=== PATIENT | female | born 1995 | race Caucasian/White ===

== ENCOUNTER 2017-02-01 10:14 | Emergency (ER) | payer BC ==
[2017-02-01 10:19] VITALS: BP 108/76; PULSE 77; RESP 16; TEMP 98.1; O2SAT 98
[2017-02-01] MEDS ORDERED: RABIES VACC, HUMAN DIPLOID/PF 2.5 UNIT VIAL (RABAVERT) IM ONE (10:34)
--- NOTE | 2017-02-01 10:49 | EDPHY ---
H & P Smoking Status: Never smoked Time Seen by Provider: 02/01/17 10:35 HPI/ROS: CHIEF COMPLAINT: Here for rabies vaccine #4 HISTORY OF PRESENT ILLNESS: 21-year-old immunocompetent female with no prior history of rabies vaccinations states that 3 weeks ago while she was in [place] a dog bit her right hand, unprovoked. Did not break the skin however the patient had multiple open wounds on her hand at that time. She had returned back to [place] where she was living at that time received post exposure prophylaxis including immune globulin dosages 1-3 and is now in [place] where she lives and is here for dose 4. She is asymptomatic. Right hand is nontender. PRIMARY CARE PROVIDER: REVIEW OF SYSTEMS: A ten point review of systems was performed and is negative with the exception of the items mentioned in the HPI PHYSICAL EXAM (Prior to examination, patient consented to physical exam, hands were washed and my usual and customary physical exam procedures followed) 1) GENERAL: Well-developed, well-nourished, alert and oriented. Appears to be in no acute distress. 2) HEAD: Normocephalic 3) HEENT: sclera anicteric 4) LUNGS: Breathing comfortably. 5) SKIN: right hand is examined and there are no lesions no signs of infection , no puncture wounds. 6) MUSCULOSKELETAL: right hand is nontender. (Roberto Castaneda) Constitutional: Initial Vital Signs Temperature (C) 36.7 C 02/01/17 10:17 Heart Rate 77 02/01/17 10:17 Respiratory Rate 16 02/01/17 10:17 Blood Pressure 108/76 02/01/17 10:17 O2 Sat (%) 98 02/01/17 10:17 O2 Delivery Mode Room Air Allergies/Adverse Reactions: Penicillins Allergy (Unknown, Verified 02/01/17 10:15) as child Home Medications: Medication Instructions Recorded ADORE 02/01/17 MDM/Departure - MDM Medications Given: Discontinued Medications Rabies Vaccine Human Diploid Cell (Rabavert) 2.5 unit IM .ONCE ONE Stop: 02/01/17 10:35 Last Admin: 02/01/17 10:40 Dose: 2.5 unit ED Course/Re-evaluation: The patient was evaluated and managed by the physician dietetic assistant. I have reviewed this chart and I agree with the findings and plan of care as documented , as indicated by my signature. I am the secondary supervising physician. ( Juana Vivar) - Depart Disposition: Home, Routine, Self-Care Clinical Impression: Possible rabies exposure Condition: Good Instructions: Rabies Vaccine (ED) Additional Instructions: Return to the ER if develop flu-like symptoms, localized pain to your hand or any other symptoms that concern you. Referrals: [facility] (ED,. [Edm Groups for Call Sched] - 5-7 days, call for appt.
== END 2017-02-01 10:54 | disposition home or self-care (01) ==
DX: Z20.3 Contact with and (suspected) exposure to rabies (principal); Z23 Encounter for immunization